=== PATIENT | female | born 1965 | race Caucasian/White ===

== ENCOUNTER 2022-12-30 09:53 | Outpatient (CLI) | payer MEDICAID, SELFPAY ==
--- NOTE | 2022-12-30 12:11 | W.ANESCHARGE ---
Anesthesia Charges Start Date/Time Anesthesia Start Date: 12/30/22 Anesthesia Start Time: 11:50 Stop Date/Time Anesthesia Stop Date: 12/30/22 Anesthesia Stop Time: 12:40
--- NOTE | 2022-12-30 12:44 | W.ANESCHARGE ---
Anesthesia Charges Start Date/Time Anesthesia Start Date: 12/30/22 Anesthesia Start Time: 11:50 Stop Date/Time Anesthesia Stop Date: 12/30/22 Anesthesia Stop Time: 12:40
== END 2022-12-30 09:54 | disposition home or self-care (01) ==
LOC: OP CLINIC 09:56
PROVIDERS: PCP Family Medicine; Visit Provider Internal Medicine Gastroenterology
DX: R19.7 Diarrhea, unspecified (principal); K44.9 Diaphragmatic hernia without obstruction or gangrene; D49.0 Neoplasm of unspecified behavior of digestive system; K56.690 Other partial intestinal obstruction
CPT/HCPCS: 00811; 00813; 43239; 45380; 45381; 88305; J2704

== ENCOUNTER 2023-01-09 07:24 | Outpatient (CLI) | payer MEDICAID, SELFPAY ==
--- NOTE | 2023-01-09 08:00 | CRLHL7_ITS ---
For Patients: As a result of the 21st Century Cures Act, medical imaging exams and procedure reports are released immediately into your electronic medical record. You may view this report before your referring provider. If you have questions, please contact your health care provider. Indication: chronic diarrhea Technique: Postcontrast CT chest, abdomen and pelvis. 100 cc Isovue 370 intravenous contrast. Please note that all CT scans at this facility use dose modulation, iterative reconstruction, and/or weight-based dosing when appropriate to reduce radiation dose to as low as reasonably achievable. Comparison: CT chest 05/20/2021 Findings: In the chest, there is no infiltrate. No edema or effusion. No pneumothorax. Stable nodule left lower lobe measuring 4.7 millimeters, . Visualized thyroid normal. No adenopathy. Normal breast tissue. Moderate compression deformity of T5 has developed in the interim with associated loss of the normal disc space at T5-6. Reactive sclerotic changes within the inferior endplate of T5 and superior endplate of T6. In the abdomen, there are 2 subcentimeter cysts present. Focal fat deposition adjacent to the falciform ligament. The gallbladder is normal. No calcified gallstones. No biliary obstruction. Pancreas normal. Spleen unremarkable. Small hiatal hernia measures 2.5 cm. Masslike area within the hepatic flexure measuring 4.3 cm, series 4, images 118-131. No mechanical bowel obstruction. There are numerous subcentimeter mesenteric lymph nodes present within the right side of the abdomen. No free air or abscess. Nonobstructing 2 millimeter stone lower pole left kidney. Right kidney normal. Incidental splenule is present. In the pelvis, no bladder wall thickening or bladder stone. No pelvic soft tissue mass. Loss of the disc space at L5-S1 with indistinct margins and reactive sclerotic change. No abdominal wall hernia. Impression: Masslike area within the hepatic flexure measuring 4.3 cm, large adenoma versus adenocarcinoma. Numerous adjacent subcentimeter mesenteric lymph nodes within the right side of the abdomen. Colonoscopy recommended. Severe discogenic disease L5-S1 with indistinct margins and interval compression deformity of T5 with indistinct margins at the T5-6 disc space, concerning for chronic discitis/osteomyelitis. MRI of the thoracolumbar spine recommended with and without contrast. Nonobstructing 2 millimeter stone lower pole left kidney. Stable 4.7 millimeter nodule left lower lobe. Interval clearing of previously noted infiltrates. Please note that all CT scans at this facility use dose modulation, iterative reconstruction, and/or weight-based dosing when appropriate to reduce radiation dose to as low as reasonably achievable. Dictated by Naun Haider MD @ 01/09/2023 12:56:00 PM (Electronically Signed)
== END 2023-01-09 07:25 | disposition home or self-care (01) ==
PROVIDERS: PCP Family Medicine; Visit Provider Internal Medicine Gastroenterology
DX: K52.9 Noninfective gastroenteritis and colitis, unspecified (principal); N20.0 Calculus of kidney; R91.1 Solitary pulmonary nodule; M51.37 Other intervertebral disc degeneration, lumbosacral region; K63.89 Other specified diseases of intestine
CPT/HCPCS: 71260; 74177; Q9967

== ENCOUNTER 2023-02-17 07:29 | Outpatient (CLI) | payer BC, MEDICAID, SELFPAY | END 2023-02-17 07:30 | disposition home or self-care (01) | LOC: AMB 02-21 09:39 | PROVIDERS: PCP Family Medicine; Visit Provider Family Medicine | DX: R41.82 Altered mental status, unspecified (principal) | CPT/HCPCS: A0425; A0433 ==

== ENCOUNTER 2023-02-17 07:53 | Emergency (ER) | payer BC, MEDICAID, SELFPAY ==
[2023-02-17] VITALS (85 sets, daily range): BP systolic 50–143; BP diastolic 26–126; PULSE 91–120; RESP 14; TEMP 36–37.3; O2SAT 81–100
--- NOTE | 2023-02-17 07:57 | CRLHL7_ITS ---
For Patients: As a result of the Cures Act, medical imaging exams and procedure reports are released immediately into your electronic medical record. You may view this report before your referring provider. If you have questions, please contact your health care provider. INDICATION: Altered mental status COMPARISON: No prior chest radiographs available for comparison TECHNIQUE: Portable single view study FINDINGS: TUBES AND LINES: None. HEART AND MEDIASTINUM: The heart size is normal. The mediastinal contour appears normal for patient age. LUNGS AND PLEURAL SPACES: The lungs appear normal.The pleural spaces are unremarkable. OSSEOUS STRUCTURES: Age-appropriate appearance. No acute focal finding. IMPRESSION: No evidence of active pulmonary disease. Dictated by Hayden Guardado MD @ 02/17/2023 8:49:22 AM (Electronically Signed)
--- NOTE | 2023-02-17 07:57 | CRLHL7_ITS ---
For Patients: As a result of the Century Cures Act, medical imaging exams and procedure reports are released immediately into your electronic medical record. You may view this report before your referring provider. If you have questions, please contact your health care provider. INDICATION: Altered mental status. ETOH COMPARISON: January 08, 2015 TECHNIQUE: CT examination of the head was performed as axial sections without intravenous contrast. Images were obtained from the vertex of the skull through the skull base. Please note that all CT scans at this facility use dose modulation, iterative reconstruction, and/or weight-based dosing when appropriate to reduce radiation dose to as low as reasonably achievable. FINDINGS: The brain shows no sign of mass lesion, mass effect, hemorrhage, or edema. There are mild involutional changes. Mild cortical and cerebellar volume loss. No significant white matter disease. No hydrocephalus. The visualized portions of the orbits are normal in appearance. The osseous structures are normal in appearance with no sign of abnormality in the skull base or calvarium. IMPRESSION: No acute focal findings. Please note that all CT scans at this facility use dose modulation, iterative reconstruction, and/or weight-based dosing when appropriate to reduce radiation dose to as low as reasonably achievable. Dictated by Hayden Guardado MD @ 02/17/2023 8:47:16 AM (Electronically Signed)
[2023-02-17 08:03] LABS: HCO3 VBG 21 mmol/L (21-28); PCO2 VBG 36 mmHG (40-50); PO2 VBG 59.9 mmHG (25-47)
[2023-02-17 08:08] LABS: Lactate* 6.2 mmol/L (0.5-1.9)
--- NOTE | 2023-02-17 08:12 | ED.GENADULT ---
HPI - General Adult General Time Seen by Provider: 07:50 <Juan R Jha MD - Last Filed: 02/24/23 23:57> Date Seen: 02/17/23 <Juan R Jha MD - Last Filed: 02/24/23 23:57> Chief complaint: Altered Mental Status <Juan R Jha MD - Last Filed: 02/24/23 23:57> Stated complaint: intoxication, unresponsive <Juan R Jha MD - Last Filed: 02/24/23 23:57> Time Seen by Provider: 02/17/23 08:16 <Juan R Jha MD - Last Filed: 02/24/23 23:57> Source: EMS <Juan R Jha MD - Last Filed: 02/24/23 23:57> Mode of arrival: EMS <Juan R Jha MD - Last Filed: 02/24/23 23:57> Limitations: altered mental status <Juan R Jha MD - Last Filed: 02/24/23 23:57> History of Present Illness HPI narrative: 58-year-old male with history of alcohol dependence who presents today with altered mental status. Friend found her unresponsive this morning and called EMS. Per friends report, patient has periods of sobriety but started drinking again. Per EMS report, patient was unresponsive initially. <Juan R Jha MD - Last Filed: 02/24/23 23:57> Related Data Home medications: Home Medications Medication Instructions Recorded Confirmed amlodipine 5 mg tablet 5 mg PO DAILY 02/17/23 02/17/23 cholecalciferol (vitamin D3) 125 125 mcg PO DAILY 02/17/23 02/17/23 mcg (5,000 unit) capsule furosemide 20 mg tablet 20 mg PO DAILY 02/17/23 02/17/23 gabapentin 600 mg tablet 600 - 1,200 mg PO BID 02/17/23 02/17/23 ibuprofen 200 mg tablet (Addaprin) 200 mg PO Q6H PRN 02/17/23 02/17/23 lisinopril 5 mg tablet 5 mg PO DAILY 02/17/23 02/17/23 melatonin 10 mg capsule 10 mg PO HS PRN 02/17/23 02/17/23 omega 9-byd-lsl-fish oil 1,200 mg 1 cap PO DAILY 02/17/23 02/17/23 (144 mg-216 mg) capsule (Fish Oil) thiamine HCl (vitamin B1) 100 mg 100 mg PO DAILY 02/17/23 02/17/23 tablet (Vitamin B-1) venlafaxine 150 mg 150 mg PO DAILY 02/17/23 02/17/23 capsule,extended release 24 hr venlafaxine 75 mg capsule,extended 75 mg PO DAILY 02/17/23 02/17/23 release 24 hr <Juan R Jha MD - Last Filed: 02/24/23 23:57> Allergies/adverse reactions: Allergies Allergy/AdvReac Type Severity Reaction Status Date / Time penicillin V Allergy Verified 01/09/23 08:19 [email or web address] Allergy Verified 01/09/23 08:19 <Juan R Jha MD - Last Filed: 02/24/23 23:57> [facility] Social History: Social History Smoking Status: Unknown if ever smoked <Juan R Jha MD - Last Filed: 02/24/23 23:57> Exam Narrative: Exam Narrative: General: Well-developed and well-nourished, eyes open and head turn to the left Head: Atraumatic and normocephalic Eyes: Pupils are equal reactive, extraocular motions intact, conjunctiva injected ENT: External nose and ears are normal, posterior pharynx without erythema or exudate Neck: No midline cervical tenderness, full spontaneous range of motion the neck, trachea midline, no adenopathy Heart: Tachycardic but regular Lungs: Clear to auscultation bilaterally without wheezes or crackles Abdomen: Soft, nontender, nondistended with active bowel sounds Musculoskeletal: No tenderness, deformity, or edema Neurologic: Withdraws to pain, turns head to voice, nonverbal, follows commands and will occasionally kick the right leg Psych: Mood and affect are appropriate Skin: No rashes <Juan R Jha MD - Last Filed: 02/24/23 23:57> Const: Vital Signs, click to edit/add: Vital Signs - 24 hr 02/17/23 07:53 02/17/23 08:00 02/17/23 08:00 Temperature 96.8 F L Pulse Rate Pulse Rate [Apical ] 96 Respiratory Rate 14 Blood Pressure Blood Pressure [Ri ght Upper Arm] 136/95 H Pulse Oximetry 99 98 99 Oxygen Delivery Me thod Nasal Cannula Nasal Cannula Oxygen Flow Rate 4 4 02/17/23 08:23 02/17/23 08:34 02/17/23 08:35 Temperature Pulse Rate 96 98 Pulse Rate [Apical ] Respiratory Rate Blood Pressure 120/80 135/76 Blood Pressure [Ri ght Upper Arm] Pulse Oximetry 94 81 L Oxygen Delivery Me thod Oxygen Flow Rate 02/17/23 08:36 02/17/23 08:40 02/17/23 08:42 Temperature Pulse Rate 96 99 98 Pulse Rate [Apical ] Respiratory Rate Blood Pressure 128/85 141/70 H Blood Pressure [Ri ght Upper Arm] Pulse Oximetry 98 97 97 Oxygen Delivery Me thod Oxygen Flow Rate 02/17/23 08:46 02/17/23 08:50 02/17/23 08:51 Temperature Pulse Rate 93 94 95 Pulse Rate [Apical ] Respiratory Rate Blood Pressure 133/76 135/74 Blood Pressure [Ri ght Upper Arm] Pulse Oximetry 96 98 98 Oxygen Delivery Me thod Oxygen Flow Rate 02/17/23 08:56 02/17/23 08:57 02/17/23 09:00 Temperature Pulse Rate 91 91 91 Pulse Rate [Apical ] Respiratory Rate Blood Pressure 123/81 Blood Pressure [Ri ght Upper Arm] Pulse Oximetry 99 99 100 Oxygen Delivery Me thod Oxygen Flow Rate 02/17/23 09:01 02/17/23 09:06 02/17/23 09:10 Temperature Pulse Rate 93 99 95 Pulse Rate [Apical ] Respiratory Rate Blood Pressure 125/83 126/85 Blood Pressure [Ri ght Upper Arm] Pulse Oximetry 99 99 99 Oxygen Delivery Me thod Oxygen Flow Rate 02/17/23 09:11 02/17/23 09:16 02/17/23 09:17 Temperature Pulse Rate 95 94 96 Pulse Rate [Apical ] Respiratory Rate Blood Pressure 131/66 127/77 Blood Pressure [Ri ght Upper Arm] Pulse Oximetry 99 99 99 Oxygen Delivery Me thod Oxygen Flow Rate 02/17/23 09:20 02/17/23 09:21 02/17/23 09:26 Temperature Pulse Rate 94 101 H 98 Pulse Rate [Apical ] Respiratory Rate Blood Pressure 122/101 H 114/79 Blood Pressure [Ri ght Upper Arm] Pulse Oximetry 99 99 97 Oxygen Delivery Me thod Oxygen Flow Rate 02/17/23 09:30 02/17/23 09:31 02/17/23 09:36 Temperature Pulse Rate 91 91 93 Pulse Rate [Apical ] Respiratory Rate Blood Pressure 130/67 114/93 H Blood Pressure [Ri ght Upper Arm] Pulse Oximetry 96 95 97 Oxygen Delivery Me thod Oxygen Flow Rate 02/17/23 09:40 02/17/23 09:44 02/17/23 09:49 Temperature Pulse Rate 106 H 109 H 101 H Pulse Rate [Apical ] Respiratory Rate Blood Pressure 106/94 H Blood Pressure [Ri ght Upper Arm] Pulse Oximetry 97 96 97 Oxygen Delivery Me thod Oxygen Flow Rate 02/17/23 09:50 02/17/23 09:51 02/17/23 10:00 Temperature Pulse Rate 99 100 109 H Pulse Rate [Apical ] Respiratory Rate Blood Pressure 112/89 Blood Pressure [Ri ght Upper Arm] Pulse Oximetry 97 98 98 Oxygen Delivery Me thod Oxygen Flow Rate 02/17/23 10:10 02/17/23 10:17 02/17/23 10:20 Temperature Pulse Rate 107 H 107 H 109 H Pulse Rate [Apical ] Respiratory Rate Blood Pressure 143/126 H Blood Pressure [Ri ght Upper Arm] Pulse Oximetry 95 95 94 Oxygen Delivery Me thod Oxygen Flow Rate 02/17/23 10:23 02/17/23 10:27 02/17/23 10:30 Temperature Pulse Rate 106 H 106 H 107 H Pulse Rate [Apical ] Respiratory Rate Blood Pressure 104/62 105/72 Blood Pressure [Ri ght Upper Arm] Pulse Oximetry 96 94 95 Oxygen Delivery Me thod Oxygen Flow Rate 02/17/23 10:32 02/17/23 10:36 02/17/23 10:40 Temperature Pulse Rate 108 H 105 H 113 H Pulse Rate [Apical ] Respiratory Rate Blood Pressure 104/71 102/72 Blood Pressure [Ri ght Upper Arm] Pulse Oximetry 96 93 95 Oxygen Delivery Me thod Oxygen Flow Rate 02/17/23 10:42 02/17/23 10:46 02/17/23 10:50 Temperature Pulse Rate 109 H 110 H 110 H Pulse Rate [Apical ] Respiratory Rate Blood Pressure 90/75 112/84 Blood Pressure [Ri ght Upper Arm] Pulse Oximetry 93 95 94 Oxygen Delivery Me thod Oxygen Flow Rate 02/17/23 10:52 02/17/23 10:58 02/17/23 11:00 Temperature Pulse Rate 110 H 111 H 116 H Pulse Rate [Apical ] Respiratory Rate Blood Pressure 77/64 L 50/26 L Blood Pressure [Ri ght Upper Arm] Pulse Oximetry 95 91 94 Oxygen Delivery Me thod Oxygen Flow Rate 02/17/23 11:02 02/17/23 11:03 02/17/23 11:06 Temperature Pulse Rate 110 H 116 H 106 H Pulse Rate [Apical ] Respiratory Rate Blood Pressure 116/45 L 93/68 Blood Pressure [Ri ght Upper Arm] Pulse Oximetry 95 95 94 Oxygen Delivery Me thod Oxygen Flow Rate 02/17/23 11:10 02/17/23 11:11 02/17/23 11:18 Temperature Pulse Rate 106 H 106 H 111 H Pulse Rate [Apical ] Respiratory Rate Blood Pressure 109/56 L 105/33 L Blood Pressure [Ri ght Upper Arm] Pulse Oximetry 91 93 95 Oxygen Delivery Me thod Oxygen Flow Rate 02/17/23 11:20 02/17/23 11:22 02/17/23 11:27 Temperature Pulse Rate 107 H 108 H 116 H Pulse Rate [Apical ] Respiratory Rate Blood Pressure 114/60 107/69 Blood Pressure [Ri ght Upper Arm] Pulse Oximetry 94 94 95 Oxygen Delivery Me thod Oxygen Flow Rate 02/17/23 11:30 02/17/23 11:31 02/17/23 11:36 Temperature Pulse Rate 109 H 109 H 109 H Pulse Rate [Apical ] Respiratory Rate Blood Pressure 110/59 L 100/67 Blood Pressure [Ri ght Upper Arm] Pulse Oximetry 95 95 94 Oxygen Delivery Me thod Oxygen Flow Rate 02/17/23 11:40 02/17/23 11:41 02/17/23 11:46 Temperature Pulse Rate 107 H 109 H 108 H Pulse Rate [Apical ] Respiratory Rate Blood Pressure 112/69 109/64 Blood Pressure [Ri ght Upper Arm] Pulse Oximetry 94 95 92 Oxygen Delivery Me thod Oxygen Flow Rate 02/17/23 11:50 02/17/23 11:52 02/17/23 12:00 Temperature Pulse Rate 111 H 112 H 109 H Pulse Rate [Apical ] Respiratory Rate Blood Pressure 88/72 L Blood Pressure [Ri ght Upper Arm] Pulse Oximetry 96 95 92 Oxygen Delivery Me thod Oxygen Flow Rate 02/17/23 12:02 02/17/23 12:10 02/17/23 12:20 Temperature Pulse Rate 110 H 111 H 115 H Pulse Rate [Apical ] Respiratory Rate Blood Pressure 116/57 L Blood Pressure [Ri ght Upper Arm] Pulse Oximetry 92 92 94 Oxygen Delivery Me thod Oxygen Flow Rate 02/17/23 12:30 02/17/23 12:40 02/17/23 12:50 Temperature Pulse Rate 111 H 116 H 115 H Pulse Rate [Apical ] Respiratory Rate Blood Pressure Blood Pressure [Ri ght Upper Arm] Pulse Oximetry 95 95 93 Oxygen Delivery Me thod Oxygen Flow Rate 02/17/23 13:00 02/17/23 13:02 02/17/23 13:03 Temperature Pulse Rate 119 H 114 H 113 H Pulse Rate [Apical ] Respiratory Rate Blood Pressure 114/74 Blood Pressure [Ri ght Upper Arm] Pulse Oximetry 91 91 89 Oxygen Delivery Me thod Oxygen Flow Rate 02/17/23 13:10 02/17/23 13:20 02/17/23 13:30 Temperature Pulse Rate 117 H 120 H 114 H Pulse Rate [Apical ] Respiratory Rate Blood Pressure Blood Pressure [Ri ght Upper Arm] Pulse Oximetry 94 95 89 Oxygen Delivery Me thod Oxygen Flow Rate 02/17/23 13:40 02/17/23 13:50 02/17/23 14:00 Temperature Pulse Rate 117 H 108 H 108 H Pulse Rate [Apical ] Respiratory Rate Blood Pressure Blood Pressure [Ri ght Upper Arm] Pulse Oximetry 96 95 95 Oxygen Delivery Me thod Oxygen Flow Rate 02/17/23 14:02 02/17/23 14:03 02/17/23 15:38 Temperature Pulse Rate 112 H 111 H 117 H Pulse Rate [Apical ] Respiratory Rate Blood Pressure 125/60 Blood Pressure [Ri ght Upper Arm] Pulse Oximetry 96 95 90 Oxygen Delivery Me thod Oxygen Flow Rate 02/17/23 15:40 02/17/23 15:41 Temperature 99.1 F Pulse Rate 118 H 119 H Pulse Rate [Apical ] Respiratory Rate Blood Pressure 111/75 Blood Pressure [Ri ght Upper Arm] Pulse Oximetry 93 96 Oxygen Delivery Me thod Oxygen Flow Rate <Juan R Jha MD - Last Filed: 02/24/23 23:57> Vital Signs, click to edit/add: Vital Signs - 24 hr 02/17/23 07:53 02/17/23 08:00 02/17/23 08:00 Temperature 96.8 F L Pulse Rate Pulse Rate [Apical ] 96 Respiratory Rate 14 Blood Pressure Blood Pressure [Ri ght Upper Arm] 136/95 H Pulse Oximetry 99 98 99 Oxygen Delivery Me thod Nasal Cannula Nasal Cannula Oxygen Flow Rate 4 4 02/17/23 08:23 02/17/23 08:34 02/17/23 08:35 Temperature Pulse Rate 96 98 Pulse Rate [Apical ] Respiratory Rate Blood Pressure 120/80 135/76 Blood Pressure [Ri ght Upper Arm] Pulse Oximetry 94 81 L Oxygen Delivery Me thod Oxygen Flow Rate 02/17/23 08:36 02/17/23 08:40 02/17/23 08:42 Temperature Pulse Rate 96 99 98 Pulse Rate [Apical ] Respiratory Rate Blood Pressure 128/85 141/70 H Blood Pressure [Ri ght Upper Arm] Pulse Oximetry 98 97 97 Oxygen Delivery Me thod Oxygen Flow Rate 02/17/23 08:46 02/17/23 08:50 02/17/23 08:51 Temperature Pulse Rate 93 94 95 Pulse Rate [Apical ] Respiratory Rate Blood Pressure 133/76 135/74 Blood Pressure [Ri ght Upper Arm] Pulse Oximetry 96 98 98 Oxygen Delivery Me thod Oxygen Flow Rate 02/17/23 08:56 02/17/23 08:57 02/17/23 09:00 Temperature Pulse Rate 91 91 91 Pulse Rate [Apical ] Respiratory Rate Blood Pressure 123/81 Blood Pressure [Ri ght Upper Arm] Pulse Oximetry 99 99 100 Oxygen Delivery Me thod Oxygen Flow Rate 02/17/23 09:01 02/17/23 09:06 02/17/23 09:10 Temperature Pulse Rate 93 99 95 Pulse Rate [Apical ] Respiratory Rate Blood Pressure 125/83 126/85 Blood Pressure [Ri ght Upper Arm] Pulse Oximetry 99 99 99 Oxygen Delivery Me thod Oxygen Flow Rate 02/17/23 09:11 02/17/23 09:16 02/17/23 09:17 Temperature Pulse Rate 95 94 96 Pulse Rate [Apical ] Respiratory Rate Blood Pressure 131/66 127/77 Blood Pressure [Ri ght Upper Arm] Pulse Oximetry 99 99 99 Oxygen Delivery Me thod Oxygen Flow Rate 02/17/23 09:20 02/17/23 09:21 02/17/23 09:26 Temperature Pulse Rate 94 101 H 98 Pulse Rate [Apical ] Respiratory Rate Blood Pressure 122/101 H 114/79 Blood Pressure [Ri ght Upper Arm] Pulse Oximetry 99 99 97 Oxygen Delivery Me thod Oxygen Flow Rate 02/17/23 09:30 02/17/23 09:31 02/17/23 09:36 Temperature Pulse Rate 91 91 93 Pulse Rate [Apical ] Respiratory Rate Blood Pressure 130/67 114/93 H Blood Pressure [Ri ght Upper Arm] Pulse Oximetry 96 95 97 Oxygen Delivery Me thod Oxygen Flow Rate 02/17/23 09:40 02/17/23 09:44 02/17/23 09:49 Temperature Pulse Rate 106 H 109 H 101 H Pulse Rate [Apical ] Respiratory Rate Blood Pressure 106/94 H Blood Pressure [Ri ght Upper Arm] Pulse Oximetry 97 96 97 Oxygen Delivery Me thod Oxygen Flow Rate 02/17/23 09:50 02/17/23 09:51 02/17/23 10:00 Temperature Pulse Rate 99 100 109 H Pulse Rate [Apical ] Respiratory Rate Blood Pressure 112/89 Blood Pressure [Ri ght Upper Arm] Pulse Oximetry 97 98 98 Oxygen Delivery Me thod Oxygen Flow Rate 02/17/23 10:10 02/17/23 10:17 02/17/23 10:20 Temperature Pulse Rate 107 H 107 H 109 H Pulse Rate [Apical ] Respiratory Rate Blood Pressure 143/126 H Blood Pressure [Ri ght Upper Arm] Pulse Oximetry 95 95 94 Oxygen Delivery Me thod Oxygen Flow Rate 02/17/23 10:23 02/17/23 10:27 02/17/23 10:30 Temperature Pulse Rate 106 H 106 H 107 H Pulse Rate [Apical ] Respiratory Rate Blood Pressure 104/62 105/72 Blood Pressure [Ri ght Upper Arm] Pulse Oximetry 96 94 95 Oxygen Delivery Me thod Oxygen Flow Rate 02/17/23 10:32 02/17/23 10:36 02/17/23 10:40 Temperature Pulse Rate 108 H 105 H 113 H Pulse Rate [Apical ] Respiratory Rate Blood Pressure 104/71 102/72 Blood Pressure [Ri ght Upper Arm] Pulse Oximetry 96 93 95 Oxygen Delivery Me thod Oxygen Flow Rate 02/17/23 10:42 02/17/23 10:46 02/17/23 10:50 Temperature Pulse Rate 109 H 110 H 110 H Pulse Rate [Apical ] Respiratory Rate Blood Pressure 90/75 112/84 Blood Pressure [Ri ght Upper Arm] Pulse Oximetry 93 95 94 Oxygen Delivery Me thod Oxygen Flow Rate 02/17/23 10:52 02/17/23 10:58 02/17/23 11:00 Temperature Pulse Rate 110 H 111 H 116 H Pulse Rate [Apical ] Respiratory Rate Blood Pressure 77/64 L 50/26 L Blood Pressure [Ri ght Upper Arm] Pulse Oximetry 95 91 94 Oxygen Delivery Me thod Oxygen Flow Rate 02/17/23 11:02 02/17/23 11:03 02/17/23 11:06 Temperature Pulse Rate 110 H 116 H 106 H Pulse Rate [Apical ] Respiratory Rate Blood Pressure 116/45 L 93/68 Blood Pressure [Ri ght Upper Arm] Pulse Oximetry 95 95 94 Oxygen Delivery Me thod Oxygen Flow Rate 02/17/23 11:10 02/17/23 11:11 02/17/23 11:18 Temperature Pulse Rate 106 H 106 H 111 H Pulse Rate [Apical ] Respiratory Rate Blood Pressure 109/56 L 105/33 L Blood Pressure [Ri ght Upper Arm] Pulse Oximetry 91 93 95 Oxygen Delivery Me thod Oxygen Flow Rate 02/17/23 11:20 02/17/23 11:22 02/17/23 11:27 Temperature Pulse Rate 107 H 108 H 116 H Pulse Rate [Apical ] Respiratory Rate Blood Pressure 114/60 107/69 Blood Pressure [Ri ght Upper Arm] Pulse Oximetry 94 94 95 Oxygen Delivery Me thod Oxygen Flow Rate 02/17/23 11:30 02/17/23 11:31 02/17/23 11:36 Temperature Pulse Rate 109 H 109 H 109 H Pulse Rate [Apical ] Respiratory Rate Blood Pressure 110/59 L 100/67 Blood Pressure [Ri ght Upper Arm] Pulse Oximetry 95 95 94 Oxygen Delivery Me thod Oxygen Flow Rate 02/17/23 11:40 02/17/23 11:41 02/17/23 11:46 Temperature Pulse Rate 107 H 109 H 108 H Pulse Rate [Apical ] Respiratory Rate Blood Pressure 112/69 109/64 Blood Pressure [Ri ght Upper Arm] Pulse Oximetry 94 95 92 Oxygen Delivery Me thod Oxygen Flow Rate 02/17/23 11:50 02/17/23 11:52 02/17/23 12:00 Temperature Pulse Rate 111 H 112 H 109 H Pulse Rate [Apical ] Respiratory Rate Blood Pressure 88/72 L Blood Pressure [Ri ght Upper Arm] Pulse Oximetry 96 95 92 Oxygen Delivery Me thod Oxygen Flow Rate 02/17/23 12:02 02/17/23 12:10 02/17/23 12:20 Temperature Pulse Rate 110 H 111 H 115 H Pulse Rate [Apical ] Respiratory Rate Blood Pressure 116/57 L Blood Pressure [Ri ght Upper Arm] Pulse Oximetry 92 92 94 Oxygen Delivery Me thod Oxygen Flow Rate 02/17/23 12:30 02/17/23 12:40 02/17/23 12:50 Temperature Pulse Rate 111 H 116 H 115 H Pulse Rate [Apical ] Respiratory Rate Blood Pressure Blood Pressure [Ri ght Upper Arm] Pulse Oximetry 95 95 93 Oxygen Delivery Me thod Oxygen Flow Rate 02/17/23 13:00 02/17/23 13:02 02/17/23 13:03 Temperature Pulse Rate 119 H 114 H 113 H Pulse Rate [Apical ] Respiratory Rate Blood Pressure 114/74 Blood Pressure [Ri ght Upper Arm] Pulse Oximetry 91 91 89 Oxygen Delivery Me thod Oxygen Flow Rate 02/17/23 13:10 02/17/23 13:20 02/17/23 13:30 Temperature Pulse Rate 117 H 120 H 114 H Pulse Rate [Apical ] Respiratory Rate Blood Pressure Blood Pressure [Ri ght Upper Arm] Pulse Oximetry 94 95 89 Oxygen Delivery Me thod Oxygen Flow Rate 02/17/23 13:40 02/17/23 13:50 02/17/23 14:00 Temperature Pulse Rate 117 H 108 H 108 H Pulse Rate [Apical ] Respiratory Rate Blood Pressure Blood Pressure [Ri ght Upper Arm] Pulse Oximetry 96 95 95 Oxygen Delivery Me thod Oxygen Flow Rate 02/17/23 14:02 02/17/23 14:03 02/17/23 15:38 Temperature Pulse Rate 112 H 111 H 117 H Pulse Rate [Apical ] Respiratory Rate Blood Pressure 125/60 Blood Pressure [Ri ght Upper Arm] Pulse Oximetry 96 95 90 Oxygen Delivery Me thod Oxygen Flow Rate 02/17/23 15:40 02/17/23 15:41 Temperature 99.1 F Pulse Rate 118 H 119 H Pulse Rate [Apical ] Respiratory Rate Blood Pressure 111/75 Blood Pressure [Ri ght Upper Arm] Pulse Oximetry 93 96 Oxygen Delivery Me thod Oxygen Flow Rate <Kristy Flores MD - Last Filed: 02/17/23 16:54> Course Course Hospital Course: Patient seen and examined immediately on arrival. Prior to arrival, preparations were made to intubate. However, on arrival patient is tracking to voice, moving spontaneously although not very personally, and will occasionally follow commands. She has an IO in the left side, large hematoma on the right were attempted IO was attempted. Labs and head CT are ordered. Delay due to difficulty obtaining access. Bedside sign-out to Dr. Watlers at change of shift. <Juan R Jha MD - Last Filed: 02/24/23 23:57> Reevaluation(s) Reevaluation #1: Nursing staff talked to patient's friend, last known well time Friday morning. Patient had been sober from alcohol for some time but over this last year has had recurrent episodic drinking. Patient did have a large colon polyp removed at [place] last week on Friday, today is Friday. We see no active evidence of bleeding. Prior to going to CT scan, patient would awaken to painful stimuli, any infusion of the IO caused her movement and awakening. I will be ordering a 2 L of normal saline. Her lactate is up presumably from alcohol use but consideration for infection is also possible. One blood culture was ordered. She has very difficult IV access and may be difficult to get a 2nd blood culture peripherally. Will continue to consider if patient needs intubation. She is awakening at times with interventions, any attempts for IV access or painful stimuli. Prior to going to CT her respiratory rate was in the low 20s, 95% on 2 L nasal cannula oxygen. <Kristy Flores MD - Last Filed: 02/17/23 16:54> Time: 08:31 <Kristy Flores MD - Last Filed: 02/17/23 16:54> Reevaluation #2: Patient's back from head CT, breathing independently with a good respiratory rate, on supplemental oxygen. She is hemodynamically stable. She was sleeping when she came back. She awoke to light touch and voice. I reviewed with her that she was in the [facility] ER. She gave out an exacerbated moan and then was looking around. Her venous blood gas is reassuring. Her lactate is up as noted before in the 6 range, she is getting 2 L of fluids total at this time, alcohol level is 0.47. Thus, this likely represents intoxication. I briefly reviewed her head CT, see no acute intracranial traumatic change but certainly will await Radiology over-read. I do not feel that this patient requires intubation for safety of airway at this point. We will continue to monitor her closely. At this time, will be stopping critical care time, re-initiate if there is any decompensation in her status. Believe this would give her a total of 45 minutes critical care time between Dr. Jha and myself. <Kristy Flores MD - Last Filed: 02/17/23 16:54> Time: 08:39 <Kristy Flores MD - Last Filed: 02/17/23 16:54> Reevaluation #3: Patient becoming agitated, attempting to pull 2 is come IVs come monitoring off. She is still intoxicated enough that we would like further time for the alcohol to clear. We are going to initiate 2.5 mg IV Zyprexa in hopes that this will sedate her enough but not alter any concern for airway compromise. She will be continued to be monitored closely. <Kristy Flores MD - Last Filed: 02/17/23 16:54> Time: 09:26 <Kristy Flores MD - Last Filed: 02/17/23 16:54> Additional Reevaluation(s): 1002am Spoke with and daughter. would like her to go to Detox, reviewed that she essentially needs to be agreeable to it. She is still not alert enough to have meaningful conversation. Moving about in bed, more agitated again, will give another 2.5 mg IV zyrexa to allow sleep. They are requesting foster care social worker regarding comittment. 1320 patient's daughter and her friend are in the room. Her is left. He would like her to go to detox or be committed. Chemical Lab Supervisor I believe did call him. Per daughter and her close friend that her here, they are technically but lives separately. They do not believe that she would want him to have ability to verbalize over her medical cares. I have advised them that when she is sober, she needs to fill out an advanced directive stating so, may need to actually go get legal documentation regarding this. In any event, she could not be transferred to detox right now as she is sedated and sleeping. She is still not been up and ambulatory. We will not be doing commitment paperwork on his behalf, we have not seen her at all recently for any alcohol related issues. She had almost maintained 5 years of sobriety per report. I do feel there are many levels to try to help her with achieving sobriety again in lieu of jumping immediately to commitment. Plan will be for her to continue to sleep, once she is able to ambulate and talk with us lucidly, can consider discharge to home. Certainly if she would want to go to detox, will try to arrange that. 1611pm patient is waking up. Harley catheter is bothering her, will have nursing staff remove that, allow patient to drink. We will make sure she is urinating on her own, observe her for a bit longer. Do need to talk to her about disposition and discuss alcohol use further. 1651 patient is alert conversive, has been up to the bathroom. She does not want detox. She has been in touch with her therapist, has reach back out to her sponsor. She has not done a a for quite some time. There is question whether the anesthesia from may have triggered her to drink again. She does not live with her , they live separately. She does not wish him to have say in her medical cares. Have reviewed with her that she needs to get that delineated on advanced directives, possibly even legally through textiles and clothing teacher. It is reported to me that she has had 2 commitment for alcohol before, has had multiple treatments for alcoholism. She had been reportedly alcohol free from once 5 years. I do not think 1 episode to the ER constitutes need for commitment paperwork at this time. I have reviewed with her however, if this becomes a pattern this certainly will be reconsidered. I do wish her the best and was sure success in abstaining from alcohol. She does not wish for detox from us, states she has the support she needs. Her friend has been with her most of the day, other family members have been here. <Kristy Flores MD - Last Filed: 02/17/23 16:54> Vital Signs Vital signs: Initial Vital Signs Temperature 96.8 F L 02/17/23 07:53 Temperature Source Temporal Artery Scan 02/17/23 07:53 Pulse Rate 96 02/17/23 07:53 Respiratory Rate 14 02/17/23 07:53 Blood Pressure 136/95 H 02/17/23 07:53 Blood Pressure Mean 108 02/17/23 07:53 Blood Pressure Position Sitting 02/17/23 07:53 Pulse Oximetry 99 02/17/23 07:53 Oxygen Delivery Method Nasal Cannula 02/17/23 07:53 Oxygen Flow Rate 4 02/17/23 07:53 Vital Signs Temperature 96.8 F L 02/17/23 07:53 Pulse Rate 96 02/17/23 07:53 Respiratory Rate 14 02/17/23 07:53 Blood Pressure 136/95 H 02/17/23 07:53 Pulse Oximetry 99 02/17/23 07:53 Oxygen Delivery Method Nasal Cannula 02/17/23 07:53 Oxygen Flow Rate 4 02/17/23 07:53 Temperature 99.1 F 02/17/23 15:41 Pulse Rate 119 H 02/17/23 15:41 Respiratory Rate 14 02/17/23 07:53 Blood Pressure 111/75 02/17/23 15:41 Pulse Oximetry 96 02/17/23 15:41 Oxygen Delivery Method Nasal Cannula 02/17/23 08:00 Oxygen Flow Rate 4 02/17/23 08:00 <Juan R Jha MD - Last Filed: 02/24/23 23:57> Initial Vital Signs Temperature 96.8 F L 02/17/23 07:53 Temperature Source Temporal Artery Scan 02/17/23 07:53 Pulse Rate 96 02/17/23 07:53 Respiratory Rate 14 02/17/23 07:53 Blood Pressure 136/95 H 02/17/23 07:53 Blood Pressure Mean 108 02/17/23 07:53 Blood Pressure Position Sitting 02/17/23 07:53 Pulse Oximetry 99 02/17/23 07:53 Oxygen Delivery Method Nasal Cannula 02/17/23 07:53 Oxygen Flow Rate 4 02/17/23 07:53 Vital Signs Temperature 96.8 F L 02/17/23 07:53 Pulse Rate 96 02/17/23 07:53 Respiratory Rate 14 02/17/23 07:53 Blood Pressure 136/95 H 02/17/23 07:53 Pulse Oximetry 99 02/17/23 07:53 Oxygen Delivery Method Nasal Cannula 02/17/23 07:53 Oxygen Flow Rate 4 02/17/23 07:53 Temperature 99.1 F 02/17/23 15:41 Pulse Rate 119 H 02/17/23 15:41 Respiratory Rate 14 02/17/23 07:53 Blood Pressure 111/75 02/17/23 15:41 Pulse Oximetry 96 02/17/23 15:41 Oxygen Delivery Method Nasal Cannula 02/17/23 08:00 Oxygen Flow Rate 4 02/17/23 08:00 <Kristy Flores MD - Last Filed: 02/17/23 16:54> Medical Decision Making Medical Records Medical records reviewed: Yes I reviewed the patient's medical records <Juan R Jha MD - Last Filed: 02/24/23 23:57> Lab Data Lab results reviewed: Yes I reviewed the patient's lab results <Juan R Jha MD - Last Filed: 02/24/23 23:57> Labs: Lab Results 02/17/23 02/17/23 02/17/23 Range/Units 07:56 07:57 08:10 WBC 11.59 H (4.50-11.00) K/uL RBC 5.78 H (4.00-5.20) m/uL Hgb 18.8 H (12.0-16.0) gm/dL Hct 53.3 H (33.0-51.0) % MCV 92 (80-100) fL MCH 33 (26-34) pg MCHC 35 (32-36) gm/dL RDW Coeff of Claudia 12.7 (11.5-15.5) % Plt Count 306 (140-440) K/uL Neut % (Auto) 77.7 H (42.0-72.0) % Lymph % (Auto) 14.8 L (20-44) % [place] % (Auto) 7.1 (0.0-11.0) % Eos % (Auto) 0.0 (0.0-7.0) % Baso % (Auto) 0.3 (0.0-3.0) % Neut # (Auto) 9.00 H (1.7-7.0) K/uL Lymph # (Auto) 1.70 (0.90-2.90) K/uL [place] # (Auto) 0.80 (0.00-0.90) K/UL Eos # (Auto) 0.00 (0.00-0.50) K/uL Baso # (Auto) 0.00 (0.00-0.30) K/uL INR 0.84 L (0.91-1.10) VBG pH 7.370 (7.32-7.43) VBG pCO2 36 L (40-50) mmHG VBG pO2 59.9 H (25-47) mmHG VBG HCO3 21 (21-28) mmol/L Sodium 138 (135-149) mmol/L Potassium 4.2 (3.6-5.1) mmol/L Chloride 103 (96-114) mmol/L Carbon Dioxide 16 L (20-32) mmol/L BUN 13 (7-30) mg/dL Creatinine 0.6 (0.5-1.5) mg/dL Estimated GFR 105 ml/min Glucose 110 (60-115) mg/dL Lactate 6.2 H* (0.5-1.9) mmol/L Calcium 8.2 L (8.4-10.6) mg/dL Magnesium 2.5 (1.5-2.6) mg/dL Total Bilirubin 0.6 (0.1-1.5) mg/dL Direct Bilirubin 0.4 (0.0-0.5) mg/dL AST 63 H (12-35) U/L ALT 38 H (4-35) U/L Alkaline Phosphatase 112 (40-150) U/L Total Creatine Kinase 312 H (41-117) U/L Total Protein 7.7 (6.0-8.3) g/dL Albumin 4.7 (3.3-5.0) g/dL Lipase 172 (23-300) U/L Urine Color Yellow (Yellow) Urine Appearance Cloudy A (Clear) Urine pH 5.5 (5.0-8.5) Ur Specific [place] >= 1.030 (1.000-1.030) Urine Protein 2+ A (Negative) Urine Glucose (UA) Negative (Negative) Urine Ketones 4+ A (Negative) Urine Blood 2+ A (Negative) Urine Nitrite Negative (Negative) Urine Bilirubin Negative (Negative) Urine Urobilinogen 0.2 (0.2-1.0) Ur Leukocyte Esterase Negative (Negative) Urine RBC 2-5 A (0-2) Urine WBC 2-5 (0-5) Ur Squamous Epith Cells Few (None-Few) Urine Bacteria Few A (None) Salicylates < 1.0 L (1.0-10) mg/dL Urine Opiates Screen Negative (Negative) Ur Oxycodone Screen Negative (Negative) Urine Methadone Screen Negative (Negative) Ur Propoxyphene Screen Negative (Negative) Acetaminophen < 10.0 L (10.0-30.0) ug/mL Ur Barbiturates Screen Negative (Negative) U Tricyclic Antidepress Negative (Negative) Ur Phencyclidine Scrn Negative (Negative) Ur Amphetamines Screen Negative (Negative) U Methamphetamines Scrn Negative (Negative) U Benzodiazepines Scrn Negative (Negative) Urine Cocaine Screen Negative (Negative) U Marijuana (THC) Screen Negative (Negative) Ur Drug Screen Comment See Note Ethyl Alcohol 0.47 H* (0.01-0.03) % POC Troponin I 0.00 L (0.01-0.04) ng/ml 02/17/23 02/17/23 Range/Units 11:53 11:54 WBC (4.50-11.00) K/uL RBC (4.00-5.20) m/uL Hgb (12.0-16.0) gm/dL Hct (33.0-51.0) % MCV (80-100) fL MCH (26-34) pg MCHC (32-36) gm/dL RDW Coeff of Claudia (11.5-15.5) % Plt Count (140-440) K/uL Neut % (Auto) (42.0-72.0) % Lymph % (Auto) (20-44) % [place] % (Auto) (0.0-11.0) % Eos % (Auto) (0.0-7.0) % Baso % (Auto) (0.0-3.0) % Neut # (Auto) (1.7-7.0) K/uL Lymph # (Auto) (0.90-2.90) K/uL [place] # (Auto) (0.00-0.90) K/UL Eos # (Auto) (0.00-0.50) K/uL Baso # (Auto) (0.00-0.30) K/uL INR (0.91-1.10) VBG pH (7.32-7.43) VBG pCO2 (40-50) mmHG VBG pO2 (25-47) mmHG VBG HCO3 (21-28) mmol/L Sodium (135-149) mmol/L Potassium (3.6-5.1) mmol/L Chloride (96-114) mmol/L Carbon Dioxide (20-32) mmol/L BUN (7-30) mg/dL Creatinine (0.5-1.5) mg/dL Estimated GFR ml/min Glucose (60-115) mg/dL Lactate 5.5 H* (0.5-1.9) mmol/L Calcium (8.4-10.6) mg/dL Magnesium (1.5-2.6) mg/dL Total Bilirubin (0.1-1.5) mg/dL Direct Bilirubin (0.0-0.5) mg/dL AST (12-35) U/L ALT (4-35) U/L Alkaline Phosphatase (40-150) U/L Total Creatine Kinase 311 H (41-117) U/L Total Protein (6.0-8.3) g/dL Albumin (3.3-5.0) g/dL Lipase (23-300) U/L Urine Color (Yellow) Urine Appearance (Clear) Urine pH (5.0-8.5) Ur Specific [place] (1.000-1.030) Urine Protein (Negative) Urine Glucose (UA) (Negative) Urine Ketones (Negative) Urine Blood (Negative) Urine Nitrite (Negative) Urine Bilirubin (Negative) Urine Urobilinogen (0.2-1.0) Ur Leukocyte Esterase (Negative) Urine RBC (0-2) Urine WBC (0-5) Ur Squamous Epith Cells (None-Few) Urine Bacteria (None) Salicylates (1.0-10) mg/dL Urine Opiates Screen (Negative) Ur Oxycodone Screen (Negative) Urine Methadone Screen (Negative) Ur Propoxyphene Screen (Negative) Acetaminophen (10.0-30.0) ug/mL Ur Barbiturates Screen (Negative) U Tricyclic Antidepress (Negative) Ur Phencyclidine Scrn (Negative) Ur Amphetamines Screen (Negative) U Methamphetamines Scrn (Negative) U Benzodiazepines Scrn (Negative) Urine Cocaine Screen (Negative) U Marijuana (THC) Screen (Negative) Ur Drug Screen Comment Ethyl Alcohol (0.01-0.03) % POC Troponin I (0.01-0.04) ng/ml <Juan R Jha MD - Last Filed: 02/24/23 23:57> Lab Results 02/17/23 02/17/23 02/17/23 Range/Units 07:56 07:57 08:10 WBC 11.59 H (4.50-11.00) K/uL RBC 5.78 H (4.00-5.20) m/uL Hgb 18.8 H (12.0-16.0) gm/dL Hct 53.3 H (33.0-51.0) % MCV 92 (80-100) fL MCH 33 (26-34) pg MCHC 35 (32-36) gm/dL RDW Coeff of Claudia 12.7 (11.5-15.5) % Plt Count 306 (140-440) K/uL Neut % (Auto) 77.7 H (42.0-72.0) % Lymph % (Auto) 14.8 L (20-44) % [place] % (Auto) 7.1 (0.0-11.0) % Eos % (Auto) 0.0 (0.0-7.0) % Baso % (Auto) 0.3 (0.0-3.0) % Neut # (Auto) 9.00 H (1.7-7.0) K/uL Lymph # (Auto) 1.70 (0.90-2.90) K/uL [place] # (Auto) 0.80 (0.00-0.90) K/UL Eos # (Auto) 0.00 (0.00-0.50) K/uL Baso # (Auto) 0.00 (0.00-0.30) K/uL INR 0.84 L (0.91-1.10) VBG pH 7.370 (7.32-7.43) VBG pCO2 36 L (40-50) mmHG VBG pO2 59.9 H (25-47) mmHG VBG HCO3 21 (21-28) mmol/L Sodium 138 (135-149) mmol/L Potassium 4.2 (3.6-5.1) mmol/L Chloride 103 (96-114) mmol/L Carbon Dioxide 16 L (20-32) mmol/L BUN 13 (7-30) mg/dL Creatinine 0.6 (0.5-1.5) mg/dL Estimated GFR 105 ml/min Glucose 110 (60-115) mg/dL Lactate 6.2 H* (0.5-1.9) mmol/L Calcium 8.2 L (8.4-10.6) mg/dL Magnesium 2.5 (1.5-2.6) mg/dL Total Bilirubin 0.6 (0.1-1.5) mg/dL Direct Bilirubin 0.4 (0.0-0.5) mg/dL AST 63 H (12-35) U/L ALT 38 H (4-35) U/L Alkaline Phosphatase 112 (40-150) U/L Total Creatine Kinase 312 H (41-117) U/L Total Protein 7.7 (6.0-8.3) g/dL Albumin 4.7 (3.3-5.0) g/dL Lipase 172 (23-300) U/L Urine Color Yellow (Yellow) Urine Appearance Cloudy A (Clear) Urine pH 5.5 (5.0-8.5) Ur Specific [place] >= 1.030 (1.000-1.030) Urine Protein 2+ A (Negative) Urine Glucose (UA) Negative (Negative) Urine Ketones 4+ A (Negative) Urine Blood 2+ A (Negative) Urine Nitrite Negative (Negative) Urine Bilirubin Negative (Negative) Urine Urobilinogen 0.2 (0.2-1.0) Ur Leukocyte Esterase Negative (Negative) Urine RBC 2-5 A (0-2) Urine WBC 2-5 (0-5) Ur Squamous Epith Cells Few (None-Few) Urine Bacteria Few A (None) Salicylates < 1.0 L (1.0-10) mg/dL Urine Opiates Screen Negative (Negative) Ur Oxycodone Screen Negative (Negative) Urine Methadone Screen Negative (Negative) Ur Propoxyphene Screen Negative (Negative) Acetaminophen < 10.0 L (10.0-30.0) ug/mL Ur Barbiturates Screen Negative (Negative) U Tricyclic Antidepress Negative (Negative) Ur Phencyclidine Scrn Negative (Negative) Ur Amphetamines Screen Negative (Negative) U Methamphetamines Scrn Negative (Negative) U Benzodiazepines Scrn Negative (Negative) Urine Cocaine Screen Negative (Negative) U Marijuana (THC) Screen Negative (Negative) Ur Drug Screen Comment See Note Ethyl Alcohol 0.47 H* (0.01-0.03) % POC Troponin I 0.00 L (0.01-0.04) ng/ml 02/17/23 02/17/23 Range/Units 11:53 11:54 WBC (4.50-11.00) K/uL RBC (4.00-5.20) m/uL Hgb (12.0-16.0) gm/dL Hct (33.0-51.0) % MCV (80-100) fL MCH (26-34) pg MCHC (32-36) gm/dL RDW Coeff of Claudia (11.5-15.5) % Plt Count (140-440) K/uL Neut % (Auto) (42.0-72.0) % Lymph % (Auto) (20-44) % [place] % (Auto) (0.0-11.0) % Eos % (Auto) (0.0-7.0) % Baso % (Auto) (0.0-3.0) % Neut # (Auto) (1.7-7.0) K/uL Lymph # (Auto) (0.90-2.90) K/uL [place] # (Auto) (0.00-0.90) K/UL Eos # (Auto) (0.00-0.50) K/uL Baso # (Auto) (0.00-0.30) K/uL INR (0.91-1.10) VBG pH (7.32-7.43) VBG pCO2 (40-50) mmHG VBG pO2 (25-47) mmHG VBG HCO3 (21-28) mmol/L Sodium (135-149) mmol/L Potassium (3.6-5.1) mmol/L Chloride (96-114) mmol/L Carbon Dioxide (20-32) mmol/L BUN (7-30) mg/dL Creatinine (0.5-1.5) mg/dL Estimated GFR ml/min Glucose (60-115) mg/dL Lactate 5.5 H* (0.5-1.9) mmol/L Calcium (8.4-10.6) mg/dL Magnesium (1.5-2.6) mg/dL Total Bilirubin (0.1-1.5) mg/dL Direct Bilirubin (0.0-0.5) mg/dL AST (12-35) U/L ALT (4-35) U/L Alkaline Phosphatase (40-150) U/L Total Creatine Kinase 311 H (41-117) U/L Total Protein (6.0-8.3) g/dL Albumin (3.3-5.0) g/dL Lipase (23-300) U/L Urine Color (Yellow) Urine Appearance (Clear) Urine pH (5.0-8.5) Ur Specific [place] (1.000-1.030) Urine Protein (Negative) Urine Glucose (UA) (Negative) Urine Ketones (Negative) Urine Blood (Negative) Urine Nitrite (Negative) Urine Bilirubin (Negative) Urine Urobilinogen (0.2-1.0) Ur Leukocyte Esterase (Negative) Urine RBC (0-2) Urine WBC (0-5) Ur Squamous Epith Cells (None-Few) Urine Bacteria (None) Salicylates (1.0-10) mg/dL Urine Opiates Screen (Negative) Ur Oxycodone Screen (Negative) Urine Methadone Screen (Negative) Ur Propoxyphene Screen (Negative) Acetaminophen (10.0-30.0) ug/mL Ur Barbiturates Screen (Negative) U Tricyclic Antidepress (Negative) Ur Phencyclidine Scrn (Negative) Ur Amphetamines Screen (Negative) U Methamphetamines Scrn (Negative) U Benzodiazepines Scrn (Negative) Urine Cocaine Screen (Negative) U Marijuana (THC) Screen (Negative) Ur Drug Screen Comment Ethyl Alcohol (0.01-0.03) % POC Troponin I (0.01-0.04) ng/ml <Kristy Flores MD - Last Filed: 02/17/23 16:54> Imaging Data Chest x-ray: Attestation: I have reviewed the pertinent imaging results. <Kristy Flores MD - Last Filed: 02/17/23 16:54> My impression: No acute cardiopulmonary changes on my preliminary read. Await Radiology over-read. Did visualize in the room with the portable x-ray machine. <Kristy Flores MD - Last Filed: 02/17/23 16:54> Radiologist's impression: Patient: LELA HAYDEN Facility:?[facility] Patient ID:?[id number] Site Patient ID:?[id number]. Site :?[id number] Study:?XRay Chest 1 view-02/17/2023 8:44:28 AM Ordering Physician:Lamin Pete Final Report: INDICATION: Altered mental status COMPARISON: No prior chest radiographs available for comparison TECHNIQUE: Portable single view study FINDINGS: TUBES AND LINES: None. HEART AND MEDIASTINUM: The heart size is normal. The mediastinal contour appears normal for patient age. LUNGS AND PLEURAL SPACES: The lungs appear normal.The pleural spaces are unremarkable. OSSEOUS STRUCTURES: Age-appropriate appearance. No acute focal finding. IMPRESSION: No evidence of active pulmonary disease. Dictated by Hayden Guardado MD @ 02/17/2023 8:49:22 AM (Electronic Signature) <Kristy Flores MD - Last Filed: 02/17/23 16:54> CT scan - head: Attestation: I have reviewed the pertinent imaging results. <Kristy Flores MD - Last Filed: 02/17/23 16:54> My impression: No acute pathology my preliminary review. <Kristy Flores MD - Last Filed: 02/17/23 16:54> Radiologist's impression: Patient: LELA HAYDEN Facility:?[facility] Patient ID:?[id number] Site Patient ID:?[id number]. Site :?[id number] Study:?CT Head WITHOUT-02/17/2023 8:41:27 AM Ordering Physician:Lamin Pete Final Report: INDICATION: Altered mental status. ETOH COMPARISON: January 08, 2015 TECHNIQUE: CT examination of the head was performed as axial sections without intravenous contrast. Images were obtained from the vertex of the skull through the skull base. Please note that all CT scans at this facility use dose modulation, iterative reconstruction, and/or weight-based dosing when appropriate to reduce radiation dose to as low as reasonably achievable. FINDINGS: The brain shows no sign of mass lesion, mass effect, hemorrhage, or edema. There are mild involutional changes. Mild cortical and cerebellar volume loss. No significant white matter disease. No hydrocephalus. The visualized portions of the orbits are normal in appearance. The osseous structures are normal in appearance with no sign of abnormality in the skull base or calvarium. IMPRESSION: No acute focal findings. Please note that all CT scans at this facility use dose modulation, iterative reconstruction, and/or weight-based dosing when appropriate to reduce radiation dose to as low as reasonably achievable. Dictated by Hayden Guardado MD @ 02/17/2023 8:47:16 AM (Electronic Signature) <Kristy Flores MD - Last Filed: 02/17/23 16:54> ECG Data Attestation: I personally reviewed and interpreted this ECG as follows: (Sinus tachycardia, 102 beats per minute. Some artifact in V5 and V6. No ischemic change noted. QT corrected 469 milliseconds.) <Kristy Flores MD - Last Filed: 02/17/23 16:54> Prior ECG tracings: not available for review <Kristy Flores MD - Last Filed: 02/17/23 16:54> Critical Care Time Critical Care Time Critical Care Time: Yes (Unresponsive/altered mental status) Attestation: The patient required my highest level preparedness to intervene emergently and I personally spent this critical care time directly and personally managing the patient. This critical care time included: Obtaining a history; Examining the patient; Pulse oximetry; Ordering and reviewing of studies; Arranging urgent treatment with development of a management plan; Evaluation of patients response to treatment; Frequent reassessment discussions with other providers. This critical care time was performed to assess and manage the high probability of imminent life-threatening deterioration that could result in multiorgan failure. It was exclusive of separate billable procedures and treating other patients and teaching time. <Juan R Jha MD - Last Filed: 02/24/23 23:57> Total Critical Care Time in Minutes: 30 <Juan R Jha MD - Last Filed: 02/24/23 23:57> 45 <Kristy Flores MD - Last Filed: 02/17/23 16:54> Discharge Plan Discharge Clinical Impression: Alcoholic intoxication, Altered mental status <Juan R Jha MD - Last Filed: 02/24/23 23:57> Patient Disposition: Home w/ Parent or Adult <Juan R Jha MD - Last Filed: 02/24/23 23:57> Condition: Improved <Juan R Jha MD - Last Filed: 02/24/23 23:57> Instructions: Abuse of Alcohol (ED), Alcohol Use Disorder (ED) <Juan R Jha MD - Last Filed: 02/24/23 23:57> Additional Instructions: Highly encourage you to refrain from alcohol use. Please contact your a sponsor as soon as you are able to, recommend attending meetings. If you think you need chemical dependency treatment for alcohol, contact rn social work from the county reside in. <Juan R Jha MD - Last Filed: 02/24/23 23:57> Prescriptions: No Action gabapentin 600 mg tablet 600 - 1,200 mg PO BID Rx Instructions: 600MG AM AND PM, 1200MG HS venlafaxine 150 mg capsule,extended release 24hr 150 mg PO DAILY Patient Comments: TOTAL DOSE = 225MG amlodipine 5 mg tablet 5 mg PO DAILY lisinopril 5 mg tablet 5 mg PO DAILY furosemide 20 mg tablet 20 mg PO DAILY venlafaxine 75 mg capsule,extended release 24hr 75 mg PO DAILY ibuprofen [Addaprin] 200 mg tablet 200 mg PO Q6H PRN omega 3-okb-swg-fish oil [Fish Oil] 1,200 (144-216) mg capsule 1 cap PO DAILY cholecalciferol (vitamin D3) 125 mcg (5,000 unit) capsule 125 mcg PO DAILY melatonin 10 mg capsule 10 mg PO HS PRN thiamine HCl (vitamin B1) [Vitamin B-1] 100 mg tablet 100 mg PO DAILY <Juan R Jha MD - Last Filed: 02/24/23 23:57> Follow Up/Referrals: Real Anderson MD [Primary Care Provider] - <Juan R Jha MD - Last Filed: 02/24/23 23:57> Stand Alone Forms: [employer] Info Instructions <Juan R Jha MD - Last Filed: 02/24/23 23:57>
[2023-02-17] MEDS: 0.9 % SODIUM CHLORIDE 1000 ml 1,000 ML IV (08:22)
--- NOTE | 2023-02-17 08:22 | ED.NURSE ---
Pt to CT scan with RN
[2023-02-17 08:24] LABS: Albumin* 4.7 g/dL (3.3-5.0); Chloride* 103 mmol/L (96-114)
[2023-02-17 08:25] LABS: Potassium* 4.2 mmol/L (3.6-5.1); Sodium* 138 mmol/L (135-149)
[2023-02-17 08:26] LABS: Creatinine* 0.6 mg/dL (0.5-1.5); Estimated Glomerular Filt Rate 105 ml/min; INR 0.84 (0.91-1.10)
[2023-02-17 08:27] LABS: Alkaline Phosphatase* 112 U/L (40-150); Aspartate Amino Transferase* 63 U/L (12-35); Bilirubin Direct* 0.4 mg/dL (0.0-0.5); Bilirubin Total* 0.6 mg/dL (0.1-1.5); Blood Urea Nitrogen* 13 mg/dL (7-30); Calcium* 8.2 mg/dL (8.4-10.6); Carbon Dioxide* 16 mmol/L (20-32); Glucose* 110 mg/dL (60-115); Lipase* 172 U/L (23-300); Total Protein* 7.7 g/dL (6.0-8.3)
[2023-02-17 08:28] LABS: Alanine Aminotransferase* 38 U/L (4-35); Magnesium* 2.5 mg/dL (1.5-2.6)
[2023-02-17 08:30] LABS: Acetaminophen* < 10.0 ug/mL (10.0-30.0); Salicylate* < 1.0 mg/dL (1.0-10)
[2023-02-17 08:35] LABS: Appearance Urine Cloudy (Clear); Bilirubin Urine Negative (Negative); Blood Urine 2+ (Negative); Color Urine Yellow (Yellow); Glucose Urine Negative (Negative); Ketones Urine 4+ (Negative); Leukocyte Esterase Urine Negative (Negative); Nitrite Urine Negative (Negative); Protein Urine 2+ (Negative); Specific Gravity Urine >= 1.030 (1.000-1.030); Urobilinogen Urine 0.2 (0.2-1.0); pH Urine 5.5 (5.0-8.5)
[2023-02-17 08:37] LABS: Amphetamine Screen Urine Negative (Negative); Barbiturate Screen Urine Negative (Negative); Benzodiazepines Screen Urine Negative (Negative); Cannabinoid Screen Urine Negative (Negative); Cocaine Screen Urine Negative (Negative); Methadone Screen Urine Negative (Negative); Methamphetamines Screen Urine Negative (Negative); Opiate Screen Urine Negative (Negative); Oxycodone Screen Urine Negative (Negative); Phencyclidine Screen Urine Negative (Negative); Tricyclic Antidepressant Urine Negative (Negative)
[2023-02-17 08:38] LABS: Ethanol* 0.47 % (0.01-0.03)
[2023-02-17 08:45] LABS: Creatine Kinase* 312 U/L (41-117)
[2023-02-17 08:45] LABS: Bacteria Urine Few; Squamous Epithelial Cell Urine Few (None-Few)
[2023-02-17] MEDS: LACTATED RINGERS 1000 ML 1,000 ML IV (09:04)
--- NOTE | 2023-02-17 09:05 | ED.NURSE ---
Nasal airway removed as pt became restless. Pt did settle upon removal of nasal airway. Is breathing easy and protecting airway. Does open eyes and track when her name is said, but responds minimally verbally. LR hung. Pt covered w/ additional warm blankets and reassured that she is safe. Remains on video monitoring for safety.
[2023-02-17] MEDS: ONDANSETRON 2 MG/ML inj 4 MG IVP (09:18)
[2023-02-17 09:24] LABS: Basophils Percent Auto 0.3 % (0.0-3.0); Hematocrit 53.3 % (33.0-51.0); Hemoglobin* 18.8 gm/dL (12.0-16.0); Immature Granulocytes Pct Auto 0.1 %; Lymphocytes Percent Auto 14.8 % (20-44); Mean Corpuscular HGB Conc 35 gm/dL (32-36); Mean Corpuscular Hemoglobin 33 pg (26-34); Mean Corpuscular Volume 92 fL (80-100); Monocytes Percent Auto 7.1 % (0.0-11.0); Neutrophils Percent Auto 77.7 % (42.0-72.0); Platelet Count* 306 K/uL (140-440); RDW Coefficient of Variation % 12.7 % (11.5-15.5); Red Blood Count 5.78 m/uL (4.00-5.20); White Blood Count* 11.59 K/uL (4.50-11.00)
[2023-02-17 09:25] LABS: Slide Review Reflex No
[2023-02-17] MEDS: OLANZapine 5 MG/ML inj 2.5 MG IVP ×3 (09:28→10:00)
--- NOTE | 2023-02-17 10:45 | ED.NURSE ---
Pt has been intermittently restless and thrashing in bed. Family/friend have switched out at bedside. Medications have been given. 1:1 sitter ordered by MD and now at bedside. Pt remains vitally stable. Still not following commands.
--- NOTE | 2023-02-17 11:03 | ED.NURSE ---
IO removed from L tib per MD verbal order.
[2023-02-17 11:59] LABS: Lactate* 5.5 mmol/L (0.5-1.9)
--- NOTE | 2023-02-17 11:59 | PC.SOCIAL ---
Social work: Called pt's . Jimbo, at his request regarding questions about discharge. states pt has had an alcohol issue for many years, has been to treatment 17 times and committed twice several years ago. Pt had been sober for five years until August 2022 when she started drinking vodka again. states [facility] had been helpful in past years getting her into treatment, but that she currently does not have a county worker assigned as she had been sober for five years. is hoping she can be placed in detox from the hospital. plans to call [facility] Rosenberg to discuss treatment options following detox. Provided with contact information for rn social work. dry chain worker to follow up as needed.
[2023-02-17 12:21] LABS: Creatine Kinase* 311 U/L (41-117)
--- NOTE | 2023-02-17 14:16 | ED.NURSE ---
Pt moved to room 5. Is more alert and able to respond okay when informed of plan of care.
--- NOTE | 2023-02-17 15:18 | PC.SOCIAL ---
Social work: Received call from [facility] worker, Arielle Franz, stating that is hoping pt will be committed and forced to go to substance treatment from the hospital stay. Arielle confirmed pt has been committed in the past but not in recent years as she has been sober for five years. Informed MD of information provided by Arielle Franz. At MD request, spoke with dtr Jonna by phone , , regarding health care directive forms and discharge plans. animal husbandry worker had left copies of the long and short [employer] Directives for dtr. Explained these forms and how they could be used. Dtr states pt wants to have these done so that medical decisions can be made by her healthcare directive designee instead of her . Per dtr, pt is estranged from and they do not live together. Dtr states wants pt to be forced to go to detox and treatments. Dtr states she does not agree that this is in patients best interest as she has been to treatment 17 times and it was not helpful to her. Dtr states that bring discharged home with her friendDar Dubose to assist her is the best plan for pt. Dtr states she and Gracy are familiar with out-pt and in-pt substance treatment options and will help pt to get connected to resources. Dtr refused any information on resources stating she already has this information. Dtr states she is in communication with her father and is working to convince him that this is the best plan for pt. Dtr was appreciative of information provided and is aware of how to contact director of social services if additional resources are needed.
--- NOTE | 2023-02-17 16:21 | ED.NURSE ---
Harley catheter removed - catheter intact. Pt up sba to commode. Given apple juice, water, ice chips, and clean pair of underwear. Denies pain. No s/s of withdrawal at this time. Friend - Gracy at bedside.
--- NOTE | 2023-02-17 17:26 | ED.NURSE ---
Pt friend, Gracy, provided pt w/ clean clothes and jacket. D/C paperwork reviewed w/ pt and friend who will be caring for patient. Verbalized understanding of all written and verbal instructions. IV removed, catheter intact.
== END 2023-02-17 17:29 | disposition home or self-care (01) ==
PROVIDERS: Family Medicine; Emergency Provider Family Medicine; PCP Family Medicine
DX: R41.82 Altered mental status, unspecified (principal); F10.229 Alcohol dependence with intoxication, unspecified
CPT/HCPCS: 36415; 70450; 71045; 80048; 80076; 80143; 80179; 80306; 81001; 82077; 82550; 82803; 83605; 83690; 83735; 84484; 85025; 85610; 87086; 93005; 94761; 96374; 96375; 96376; 99285; 99291; 99292; J2405; J7030; J7120; S0166

== ENCOUNTER 2023-10-16 20:15 | Outpatient (CLI) | payer BC, MEDICAID, SELFPAY | END 2023-10-16 20:16 | disposition home or self-care (01) | LOC: SLEEP 20:18 | PROVIDERS: PCP Family Medicine; Visit Provider Nurse Practitioner | DX: G47.33 Obstructive sleep apnea (adult) (pediatric) (principal) | CPT/HCPCS: 95810; A9270 ==